=== PATIENT | male | born 1950 | race Caucasian/White ===

== ENCOUNTER → 2022-10-03 10:15 | Outpatient (CLI) | payer OTHER, SELFPAY ==
--- NOTE | 2022-10-03 | DI.MRI.S_ITS ---
PROCEDURE: MR LUMBAR SPINE WO CON INDICATIONS: Strain of muscle, fascia and tendon of lower back TECHNIQUE: Noncontrast sagittal T1 spin echo and T2 fast echo, sagittal STIR, and T2 fast spin echo through the lumbar spine. In cases with scoliosis, additional coronal T2 fast spin echo may be performed. COMPARISON: None. FINDINGS: Image quality: Excellent. Alignment and Curvature: There is loss of the expected lumbar lordosis. No spondylolisthesis. Bone Marrow: Marrow is of normal overall signal. No acute vertebral body compression fractures. Spinal Cord: Conus medullaris terminates at the L1 level. Visualized cord demonstrates normal signal and size. Paraspinous Soft Tissues: No paravertebral masses. T12-L1: Mild disc desiccation and height loss. No canal stenosis. No foraminal stenosis. L1-L2: Moderate disc desiccation and height loss. Broad-based disc bulge. Mild facet ligamentum flavum hypertrophy. Mild bilateral neural foraminal stenosis. L2-L3: Severe disc desiccation and height loss. Broad-based disc bulge. No canal stenosis. Moderate bilateral neural foraminal stenosis. L3-L4: Severe disc desiccation and height loss. Broad-based disc bulge. No canal stenosis. Severe right and moderate left neural foraminal narrowing. L4-L5: Severe disc desiccation and height loss. Vacuum disc phenomenon. Severe facet ligamentum flavum hypertrophy. Moderate canal stenosis. Severe bilateral neural foraminal stenosis with flattening of the exiting nerve roots. L5-S1: Severe disc desiccation and height loss. Broad-based disc bulge. No canal stenosis. Mild right and severe left foraminal narrowing with flattening of the exiting left nerve root. IMPRESSION: 1. Multilevel disc desiccation and height loss severe from L2-S1. 2. Moderate bilateral foraminal stenosis at L2-3, moderate left foraminal stenosis at L3-4. 3. Severe right foraminal stenosis at L3-4, severe left foraminal stenosis at L5-S1, severe bilateral foraminal stenosis at L4-5 with flattening of the exiting bilateral nerve roots. 4. Broad-based disc bulge and facet ligamentum flavum hypertrophy with resultant moderate canal stenosis at L4-5. Dictated by: Nissa Marc M.D. on 10/03/2022 at 16:05 Approved by: Nissa Marc M.D. on 10/03/2022 at 16:11
== END ==
PROVIDERS: Referring Provider Physician Assistant Surgical; Visit Provider Physician Assistant Surgical
DX: M47.816 Spondylosis without myelopathy or radiculopathy, lumbar region (principal); S39.012A Strain of muscle, fascia and tendon of lower back, initial encounter; M48.061 Spinal stenosis, lumbar region without neurogenic claudication; M48.07 Spinal stenosis, lumbosacral region; M51.36 Other intervertebral disc degeneration, lumbar region
CPT/HCPCS: 72148